=== PATIENT | male | born 1980 | race Caucasian/White ===

== ENCOUNTER 2023-03-08 08:18 | Emergency (ER) | payer MEDICAID ==
[~2023-03-08] VITALS: Ht 185.4 cm; Wt 90.0 kg
[2023-03-08 08:31] VITALS: TEMP 97
[2023-03-08] MEDS ORDERED: ketorolac tromethamine 15mg/ml inj. IV ONE (08:50)
[2023-03-08] MEDS ORDERED: ketorolac trometh. 30mg/ml inj. IV ONE (08:50)
[2023-03-08] MEDS ORDERED: normal saline 1000ML IV soln IVB ONE ×2 (08:50→11:15)
[2023-03-08 09:37] LABS: BASOPHILS # (AUTO) 0.1 X10'3 (0-0.2); BASOPHILS % (AUTO) 0.5 % (0-1); EOSINOPHILS # (AUTO) 0.2 X10'3 (0-0.9); EOSINOPHILS % (AUTO) 1.8 % (0-6); HEMATOCRIT 45.5 % (42.0-52.0); HEMOGLOBIN 15.1 g/dl (14.0-17.9); LYMPHOCYTES # (AUTO) 1.6 X10'3 (1.1-4.8); LYMPHOCYTES % (AUTO) 12.3 % (21-51); MEAN CORPUSCULAR HEMOGLOBIN 29.6 PG (27.0-31.0); MEAN CORPUSCULAR HGB CONC 33.3 g/dL (33.0-36.5); MEAN PLATELET VOLUME 9.5 FL (7.4-10.4); MONOCYTES # (AUTO) 0.7 X10'3 (0-0.9); MONOCYTES % (AUTO) 5.6 % (2-12); NEUTROPHILS # (AUTO) 10.2 X10'3 (1.8-7.7); NEUTROPHILS % (AUTO) 79.8 % (42-75); PLATELET COUNT 265 X10'3 (140-440); RED BLOOD COUNT 5.12 X10'6 (4.70-6.10); RED CELL DISTRIBUTION WIDTH 13.6 % (11.5-14.5); WHITE BLOOD COUNT 12.7 X10'3 (4.5-11.0)
[2023-03-08 10:18] LABS: ALANINE AMINOTRANSFERASE 37 U/L (12-78); ALBUMIN/GLOBULIN RATIO 1.2 (1.1-1.5); ALKALINE PHOSPHATASE 96 IU/L (46-116); AMYLASE 163 U/L (25-115); ANION GAP 11 (8-16); ASPARTATE AMINO TRANSFERASE 19 U/L (10-37); BILIRUBIN,TOTAL 0.4 MG/DL (0.1-1.0); BLOOD UREA NITROGEN 15 MG/DL (7-18); BUN/CREATININE RATIO 12.7 (10.0-20.0); CALCIUM 9.2 MG/DL (8.5-10.1); CHLORIDE 104 MMOL/L (99-107); CREATININE 1.18 MG/DL (0.60-1.10); GLUCOSE 125 MG/DL (70-104); LIPASE 108 U/L (73-393); POTASSIUM 3.6 MMOL/L (3.5-5.1); SODIUM 140 MMOL/L (135-145); TOTAL CARBON DIOXIDE 24.7 MMOL/L (24-32); TOTAL PROTEIN 7.3 G/DL (6.4-8.2); eCRCL 94 ML/MIN; eGFR 68 ML/MIN
--- NOTE | 2023-03-08 10:46 | NUR ---
Pt taken for CT.
[2023-03-08] MEDS ORDERED: FLO0.4C PO (11:50)
[2023-03-08] MEDS ORDERED: ONDA4TAB12 PO (11:50)
[2023-03-08] MEDS ORDERED: HYDR-3965 PO (11:50)
[2023-03-08 12:08] LABS: BILIRUBIN,URINE NEGATIVE (Neg); CLARITY,URINE CLEAR (Clear); COLOR,URINE YELLOW (Yellow); GLUCOSE, URINE NEGATIVE (Neg); KETONES,URINE NEGATIVE (Neg); LEUKOCYTE ESTERASE ,URINE NEGATIVE (Neg); NITRITES, URINE NEGATIVE (Neg); OCCULT BLOOD,URINE MODERATE (Neg); PH,URINE 6.5 (4.8-8.0); PROTEIN,URINE NEGATIVE (Neg); UROBILINOGEN,URINE 0.2 E.U/dL (0.2-1.0)
[2023-03-08 12:12] LABS: UA COLLECTION TYPE CLN CATCH MIDSTREAM
[2023-03-08 12:23] LABS: BACTERIA,URINE NONE SEEN /HPF (Neg); SQUAMOUS EPITHELIAL CELL,UR NONE SEEN /LPF (FEW); WBC,URINE 0-4 /HPF (0-4)
[2023-03-08 12:38] VITALS: BP 121/80; PULSE 62; RESP 18; O2SAT 99
== END 2023-03-08 12:41 | disposition home or self-care (01) ==
LOC: ER 08:19
DX: N20.0 Calculus of kidney (principal); Z79.899 Other long term (current) drug therapy
CPT/HCPCS: 36415; 74176; 80053; 81001; 82150; 83690; 84145; 85025; 96374; 99285; J1885; J7030

== ENCOUNTER → 2023-05-22 | Emergency (ER) | payer MEDICAID ==
[~2023-05-22] VITALS: Ht 182.9 cm; Wt 83.2 kg
[~2023-05-22] MED LIST: ACYC-129 PO; ONDA4TAB12 PO; POLOS EACHEYE; [UNRECOGNIZED DRUG - CODE] PO
[2023-05-22 16:05] VITALS: BP 109/91; PULSE 82; RESP 16; TEMP 98.7; O2SAT 97
--- NOTE | 2023-05-22 16:51 | NUR ---
I have reviewed and agree with all interventions, assessments performed and documented by Adriana FRANK LVN.
== END | disposition home or self-care (01) ==
LOC: ER 14:05
DX: H10.9 Unspecified conjunctivitis (principal)
CPT/HCPCS: 36415; 87491; 99283

== ENCOUNTER 2023-05-23 09:20 | Emergency (ER) | payer MEDICAID ==
[~2023-05-23] VITALS: Ht 182.9 cm; Wt 84.1 kg
[~2023-05-23 09:20] MED LIST changes: -ACYC-129 PO
[2023-05-23 09:22] VITALS: BP 115/81; PULSE 98; RESP 18; TEMP 98.7; O2SAT 97
[2023-05-23] MEDS ORDERED: ACYC-129 PO (10:00)
== END 2023-05-23 10:05 | disposition home or self-care (01) ==
LOC: ER 09:21
DX: H57.11 Ocular pain, right eye (principal); Z79.899 Other long term (current) drug therapy
CPT/HCPCS: 99283

== ENCOUNTER 2024-04-03 03:03 | Emergency (ER) | payer MEDICAID ==
[~2024-04-03] VITALS: Ht 182.9 cm; Wt 86.4 kg
[~2024-04-03 03:03] MED LIST changes: +ONDA-243 PO; -ONDA4TAB12 PO; -POLOS EACHEYE; -[UNRECOGNIZED DRUG - CODE] PO
[2024-04-03 03:06] VITALS: BP 116/86; PULSE 64; RESP 14; TEMP 98.1; O2SAT 98
[2024-04-03] MEDS: proparacaine 0.5% ophthalmic drops 15ml EACHEYE ONE (05:04)
[2024-04-03] MEDS ORDERED: CLOT45CR32 TOP (05:08)
== END 2024-04-03 05:20 | disposition home or self-care (01) ==
LOC: ER 03:03
DX: L30.8 Other specified dermatitis (principal); F12.90 Cannabis use, unspecified, uncomplicated; Z79.899 Other long term (current) drug therapy
CPT/HCPCS: 99283

== ENCOUNTER 2024-08-14 09:16 | Emergency (ER) | payer MEDICAID ==
[~2024-08-14] VITALS: Ht 182.9 cm; Wt 86.1 kg
[~2024-08-14 09:16] MED LIST changes: +CLOT45CR32 TOP
[2024-08-14 09:47] VITALS: BP 121/86; PULSE 107; RESP 18; TEMP 99.6; O2SAT 98
== END 2024-08-14 12:04 | disposition left against medical advice (07) ==
LOC: ER 09:16
DX: K04.7 Periapical abscess without sinus (principal); Z53.21 Procedure and treatment not carried out due to patient leaving prior to being seen by health care provider